=== PATIENT | male | born 1990 | race African-American/Black ===

== ENCOUNTER 2019-07-13 21:01 | Emergency (ER) | payer OTHER ==
[~2019-07-13] VITALS: Ht 175.3 cm; Wt 95.9 kg
[2019-07-13 21:04] VITALS: TEMP 98.6
[2019-07-13] MEDS ORDERED: ZOFRAN ODT4 MG PO (21:58)
[2019-07-13] MEDS ORDERED: DECADRON 4MG TAB4 MG PO (21:58)
[2019-07-13 22:32] VITALS: BP 126/78; PULSE 79
== END 2019-07-13 22:32 | disposition home or self-care (01) ==
LOC: COL.ER 21:01
DX: T81.89XA Other complications of procedures, not elsewhere classified, initial encounter (principal); J39.8 Other specified diseases of upper respiratory tract
CPT/HCPCS: J1100; J2405; J7030

== ENCOUNTER 2019-07-19 12:33 | Emergency (ER) | payer OTHER ==
[~2019-07-19] VITALS: Ht 180.3 cm; Wt 95.9 kg
[~2019-07-19 12:33] MED LIST: DECADRON 4MG TAB4 MG PO; ZOFRAN ODT4 MG PO
[2019-07-19 12:56] VITALS: BP 127/84; PULSE 104; TEMP 99.5
== END 2019-07-19 14:20 | disposition left against medical advice (07) ==
LOC: COL.ER 12:33
DX: J02.9 Acute pharyngitis, unspecified (principal); Z90.49 Acquired absence of other specified parts of digestive tract